=== PATIENT | male | born 1995 | race African-American/Black ===

== ENCOUNTER 2020-02-03 06:46 | Emergency (ER) | payer BC, OTHER ==
[~2020-02-03] VITALS: Ht 180 cm; Wt 86.0 kg
[~2020-02-03 06:46] MED LIST: PRD20T PO
[2020-02-03] MEDS ORDERED: KETOROLAC 30 MG/ML VIAL IVP STA (07:18)
[2020-02-03 07:26] LABS: BASOPHILS % (AUTO) 1 % (0-10); EOSINOPHILS # (AUTO) 0.4 10^3/uL (0.0-0.3); EOSINOPHILS % (AUTO) 6 % (0-10); HEMATOCRIT 43 % (40-54); HEMOGLOBIN 15.3 G/DL (13.3-17.7); LYMPHOCYTES % (AUTO) 53 % (12-44); MEAN CORPUSCULAR HEMOGLOBIN 31 PG (25-34); MEAN CORPUSCULAR HGB CONC 36 G/DL (32-36); MEAN CORPUSCULAR VOLUME 87 FL (80-99); MEAN PLATELET VOLUME 9.8 FL (7.4-10.4); MONOCYTES # (AUTO) 0.5 X 10^3 (0.0-1.0); MONOCYTES % (AUTO) 9 % (0-12); NEUTROPHILS # (AUTO) 1.8 X 10^3 (1.8-7.8); NEUTROPHILS % (AUTO) 31 % (42-75); PLATELET COUNT 314 10^3/uL (130-400); RED CELL DISTRIBUTION WIDTH 13.3 % (10.0-14.5); WHITE BLOOD COUNT 5.7 10^3/uL (4.3-11.0)
[2020-02-03] MEDS ORDERED: ASPIRIN 81 MG CHEW (CHILDREN'S ASA) PO ONE (07:30)
[2020-02-03 07:40] LABS: ALANINE AMINOTRANSFERASE 16 U/L (0-55); ALBUMIN 4.4 GM/DL (3.2-4.5); ALKALINE PHOSPHATASE 57 U/L (40-136); BILIRUBIN,TOTAL 0.5 MG/DL (0.1-1.0); BUN/CREATININE RATIO 12; CALCIUM 8.9 MG/DL (8.5-10.1); CARBON DIOXIDE 25 MMOL/L (21-32); CHLORIDE 104 MMOL/L (98-107); CREATININE SERUM 1.25 MG/DL (0.60-1.30); GFR ESTIMATED > 60; GLUCOSE 80 MG/DL (70-105); MAGNESIUM 1.9 MG/DL (1.6-2.4); POTASSIUM 3.8 MMOL/L (3.6-5.0); SODIUM 139 MMOL/L (135-145); TOTAL PROTEIN 7.2 GM/DL (6.4-8.2)
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
[2020-02-03 08:35] VITALS: BP 122/85
== END 2020-02-03 08:37 | disposition home or self-care (01) ==
LOC: EDUNIT# 06:46 → ER 06:49
DX: R07.89 Other chest pain (principal); Z88.1 Allergy status to other antibiotic agents
CPT/HCPCS: 36415; 71045; 80053; 83735; 83874; 84484; 85025; 85379; 93005; 93041

== ENCOUNTER 2021-01-06 04:16 | Emergency (ER) | payer BC ==
[~2021-01-06] VITALS: Ht 180 cm; Wt 83.0 kg
[2021-01-06 04:27] VITALS: BP 123/78
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
== END 2021-01-06 05:06 | disposition home or self-care (01) ==
LOC: EDUNIT# 04:16 → ER 04:23
DX: S01.511A Laceration without foreign body of lip, initial encounter (principal); Z88.1 Allergy status to other antibiotic agents; Y04.2XXA Assault by strike against or bumped into by another person, initial encounter
CPT/HCPCS: 12011

== ENCOUNTER 2021-01-12 15:54 | Emergency (ER) | payer BC ==
[~2021-01-12] VITALS: Ht 180.3 cm; Wt 81.6 kg
[2021-01-12 16:17] VITALS: BP 118/76
== END 2021-01-12 16:22 | disposition home or self-care (01) ==
LOC: EDUNIT# 15:54 → ER 15:55
DX: Z48.02 Encounter for removal of sutures (principal)